=== PATIENT | male | born 1975 | race African-American/Black ===

== ENCOUNTER 2022-11-15 10:42 | Inpatient (IN) | payer OTHER, MEDICARE ==
[~2022-11-15 10:42] MED LIST: BENZ1TAB84 PO; FLUP25VI5 IM; OMEP20 PO
[2022-11-15 13:12] VITALS: BP 109/67; PULSE 89; RESP 18; TEMP 98
[2022-11-16 10:02] VITALS: BP 110/59; PULSE 92; RESP 17; TEMP 98.6
[2022-11-17 20:13] VITALS: BP 107/64; PULSE 93; RESP 20; TEMP 98.6
[2022-11-18] MEDS ORDERED: ALBUTEROL SULFATE HFA 90 MCG/PUFF 8 GM INHALER IH PRN (11:00)
[2022-11-18] MEDS ORDERED: LOPERAMIDE HCL 2 MG CAPSULE PO PRN (11:00)
[2022-11-18] MEDS ORDERED: NICOTINE 14 MG/24 HOUR PATCH TD PRN (11:00)
[2022-11-18] MEDS ORDERED: ACETAMINOPHEN 325 MG TABLET PO PRN (11:00)
[2022-11-18] MEDS ORDERED: ONDANSETRON HCL 4 MG TABLET PO PRN (11:00)
[2022-11-18] MEDS ORDERED: PETROLATUM,WHITE 28 GM JELLY TP PRN (11:00)
[2022-11-18] MEDS ORDERED: MAG HYDROX/ALUMINUM HYD/SIMETH ES 30 ML SUSPENSION UDCUP PO PRN (11:00)
[2022-11-18] MEDS ORDERED: IBUPROFEN 400 MG TABLET PO PRN (11:00)
[2022-11-18] MEDS ORDERED: CloNIDine HCL 0.1 MG TABLET PO PRN (11:00)
[2022-11-18] MEDS ORDERED: GuaiFENesin/D-METHORPHAN [SUGAR-FREE] 200-20MG/10 ML SYRUP UDCUP PO PRN (11:00)
[2022-11-18] MEDS ORDERED: MAGNESIUM HYDROXIDE SUSPENSION 30 ML UDCUP PO PRN (11:00)
[2022-11-18 20:01] VITALS: BP 116/59; PULSE 88; RESP 20; TEMP 98.3
[2022-11-18] MEDS: BENZTROPINE MESYLATE 1 MG TABLET PO SCH (21:00)
[2022-11-19 05:06] VITALS: BP 100/63; PULSE 87; RESP 18; TEMP 98
[2022-11-19] MEDS: BENZTROPINE MESYLATE 1 MG TABLET PO SCH ×2 (09:00→21:00)
[2022-11-19 16:24] VITALS: BP 110/68; PULSE 84; RESP 18; TEMP 98.2
[2022-11-20 08:52] VITALS: BP 97/55; PULSE 88; RESP 20; TEMP 98.5
[2022-11-20] MEDS: BENZTROPINE MESYLATE 1 MG TABLET PO SCH ×2 (09:00→21:00)
[2022-11-20] MEDS: FluPHENAZine DECANOATE 25 MG/ML IM SCH (09:00)
[2022-11-21] MEDS ORDERED: SODIUM CHLORIDE 0.9% 1,000 ML IV ONE (08:30)
[2022-11-21] MEDS: BENZTROPINE MESYLATE 1 MG TABLET PO SCH ×2 (09:00→20:12)
[2022-11-21] MEDS: FluPHENAZine HCL 10 MG TABLET PO SCH (11:30)
[2022-11-22] MEDS: BENZTROPINE MESYLATE 1 MG TABLET PO SCH ×2 (08:37→21:00)
[2022-11-22] MEDS: FluPHENAZine HCL 10 MG TABLET PO SCH (08:38)
[2022-11-23] MEDS: FluPHENAZine HCL 10 MG TABLET PO SCH (09:00)
[2022-11-23] MEDS: BENZTROPINE MESYLATE 1 MG TABLET PO SCH ×2 (09:00→20:50)
[2022-11-23 16:02] VITALS: BP 83/61; PULSE 82; RESP 20; TEMP 98.6
[2022-11-24] MEDS: FluPHENAZine HCL 10 MG TABLET PO SCH (08:20)
[2022-11-24] MEDS: BENZTROPINE MESYLATE 1 MG TABLET PO SCH ×2 (08:20→21:00)
[2022-11-25] MEDS: FluPHENAZine HCL 10 MG TABLET PO SCH (09:00)
[2022-11-25] MEDS: BENZTROPINE MESYLATE 1 MG TABLET PO SCH ×2 (09:00→20:50)
[2022-11-26 07:31] VITALS: BP 138/72; PULSE 54; RESP 19; TEMP 97.9
[2022-11-26] MEDS: FluPHENAZine HCL 10 MG TABLET PO SCH (08:31)
[2022-11-26] MEDS: BENZTROPINE MESYLATE 1 MG TABLET PO SCH ×2 (08:31→20:34)
[2022-11-26 19:49] VITALS: BP 91/50; PULSE 92; RESP 18; TEMP 98.3
[2022-11-27] MEDS: FluPHENAZine HCL 10 MG TABLET PO SCH (08:10)
[2022-11-27] MEDS: BENZTROPINE MESYLATE 1 MG TABLET PO SCH ×2 (08:10→21:00)
[2022-11-27] MEDS: DOCUSATE SODIUM 100 MG CAPSULE PO PRN (08:10)
[2022-11-28] MEDS: BENZTROPINE MESYLATE 1 MG TABLET PO SCH ×3 (09:00→21:00)
[2022-11-28] MEDS: FluPHENAZine HCL 10 MG TABLET PO SCH ×2 (09:00→10:03)
[2022-11-29] MEDS: BENZTROPINE MESYLATE 1 MG TABLET PO SCH ×2 (09:00→21:00)
[2022-11-29] MEDS: FluPHENAZine HCL 10 MG TABLET PO SCH (09:00)
[2022-11-30] MEDS: FluPHENAZine HCL 10 MG TABLET PO SCH (08:16)
[2022-11-30] MEDS: BENZTROPINE MESYLATE 1 MG TABLET PO SCH ×2 (08:16→20:20)
[2022-11-30 09:56] VITALS: BP 101/70; PULSE 149; RESP 18
[2022-12-01] MEDS: BENZTROPINE MESYLATE 1 MG TABLET PO SCH ×2 (07:47→21:00)
[2022-12-01] MEDS: FluPHENAZine HCL 10 MG TABLET PO SCH (07:47)
[2022-12-01] MEDS: DOCUSATE SODIUM 100 MG CAPSULE PO PRN (21:38)
[2022-12-02] MEDS: FluPHENAZine HCL 10 MG TABLET PO SCH (09:00)
[2022-12-02] MEDS: BENZTROPINE MESYLATE 1 MG TABLET PO SCH ×2 (09:00→21:00)
[2022-12-03] MEDS: BENZTROPINE MESYLATE 1 MG TABLET PO SCH ×2 (09:00→21:00)
[2022-12-03] MEDS: FluPHENAZine HCL 10 MG TABLET PO SCH (09:00)
[2022-12-03 20:22] VITALS: BP 105/65; PULSE 66; RESP 20; TEMP 98
[2022-12-04] MEDS: FluPHENAZine DECANOATE 25 MG/ML IM SCH (09:00)
[2022-12-04] MEDS: BENZTROPINE MESYLATE 1 MG TABLET PO SCH ×2 (09:00→21:00)
[2022-12-04] MEDS: FluPHENAZine HCL 10 MG TABLET PO SCH (09:00)
[2022-12-05] MEDS: FluPHENAZine HCL 10 MG TABLET PO SCH (07:53)
[2022-12-05] MEDS: BENZTROPINE MESYLATE 1 MG TABLET PO SCH ×2 (07:53→21:00)
[2022-12-06] MEDS: FluPHENAZine HCL 10 MG TABLET PO SCH ×2 (09:00→09:08)
[2022-12-06] MEDS: BENZTROPINE MESYLATE 1 MG TABLET PO SCH ×3 (09:00→21:00)
[2022-12-07 06:24] VITALS: BP 104/76; PULSE 70; RESP 20; TEMP 97.8
[2022-12-07] MEDS: BENZTROPINE MESYLATE 1 MG TABLET PO SCH ×2 (07:53→19:41)
[2022-12-07] MEDS: FluPHENAZine HCL 10 MG TABLET PO SCH (07:54)
[2022-12-08] MEDS: BENZTROPINE MESYLATE 1 MG TABLET PO SCH ×2 (07:48→21:00)
[2022-12-08] MEDS: FluPHENAZine HCL 10 MG TABLET PO SCH (07:48)
[2022-12-08 20:32] VITALS: BP 105/61; PULSE 60; RESP 20; TEMP 98.1
[2022-12-09] MEDS: FluPHENAZine HCL 10 MG TABLET PO SCH (08:57)
[2022-12-09] MEDS: BENZTROPINE MESYLATE 1 MG TABLET PO SCH ×2 (08:57→21:00)
[2022-12-10] MEDS: FluPHENAZine HCL 10 MG TABLET PO SCH (09:00)
[2022-12-10] MEDS: BENZTROPINE MESYLATE 1 MG TABLET PO SCH ×2 (09:00→21:00)
[2022-12-11] MEDS: FluPHENAZine HCL 10 MG TABLET PO SCH (08:20)
[2022-12-11] MEDS: BENZTROPINE MESYLATE 1 MG TABLET PO SCH ×2 (08:20→21:00)
[2022-12-11 20:16] VITALS: BP 129/74; PULSE 73; RESP 18; TEMP 97.8
[2022-12-12 05:12] VITALS: BP 97/67; PULSE 76; RESP 18; TEMP 98
[2022-12-12 07:33] VITALS: BP 104/68; PULSE 78; RESP 18; TEMP 98.2
[2022-12-12] MEDS: BENZTROPINE MESYLATE 1 MG TABLET PO SCH ×2 (09:00→21:00)
[2022-12-12] MEDS: FluPHENAZine HCL 10 MG TABLET PO SCH (09:00)
[2022-12-12 19:43] VITALS: BP 132/69; PULSE 84; RESP 18; TEMP 97.8
[2022-12-13 03:33] VITALS: BP 118/68; PULSE 70; RESP 18; TEMP 97.7
[2022-12-13] MEDS: BENZTROPINE MESYLATE 1 MG TABLET PO SCH ×2 (08:08→21:00)
[2022-12-13] MEDS: FluPHENAZine HCL 10 MG TABLET PO SCH (08:09)
[2022-12-13 08:15] VITALS: BP 118/64; PULSE 52; RESP 18; TEMP 97.5
[2022-12-13 20:35] VITALS: BP 105/60; PULSE 80; RESP 20; TEMP 98.1
[2022-12-14 04:45] VITALS: BP 98/58; PULSE 85; RESP 18; TEMP 98.4
[2022-12-14 08:00] VITALS: BP 116/71; PULSE 78; RESP 20; TEMP 97.6
[2022-12-14] MEDS: BENZTROPINE MESYLATE 1 MG TABLET PO SCH ×2 (08:40→21:00)
[2022-12-14] MEDS: FluPHENAZine HCL 10 MG TABLET PO SCH (08:41)
[2022-12-15 04:08] VITALS: BP 93/55; PULSE 81; RESP 20; TEMP 97.6
[2022-12-15] MEDS: BENZTROPINE MESYLATE 1 MG TABLET PO SCH ×2 (08:09→21:00)
[2022-12-15] MEDS: FluPHENAZine HCL 10 MG TABLET PO SCH (08:09)
[2022-12-16] MEDS: BENZTROPINE MESYLATE 1 MG TABLET PO SCH ×2 (08:21→20:03)
[2022-12-16] MEDS: FluPHENAZine HCL 10 MG TABLET PO SCH (08:21)
[2022-12-17] MEDS: FluPHENAZine HCL 10 MG TABLET PO SCH (09:00)
[2022-12-17] MEDS: BENZTROPINE MESYLATE 1 MG TABLET PO SCH ×2 (09:00→19:41)
[2022-12-18] MEDS: FluPHENAZine HCL 10 MG TABLET PO SCH (09:00)
[2022-12-18] MEDS: BENZTROPINE MESYLATE 1 MG TABLET PO SCH ×2 (09:00→21:00)
[2022-12-18] MEDS: FluPHENAZine DECANOATE 25 MG/ML IM SCH (09:00)
[2022-12-19] MEDS: BENZTROPINE MESYLATE 1 MG TABLET PO SCH ×2 (08:33→21:00)
[2022-12-19] MEDS: FluPHENAZine HCL 10 MG TABLET PO SCH (08:34)
[2022-12-20] MEDS: FluPHENAZine HCL 10 MG TABLET PO SCH (09:00)
[2022-12-20] MEDS: BENZTROPINE MESYLATE 1 MG TABLET PO SCH ×2 (09:00→20:36)
[2022-12-20 20:23] VITALS: BP 102/66; PULSE 90; RESP 18; TEMP 98.7
[2022-12-21 05:17] VITALS: BP 116/56; PULSE 82; RESP 18; TEMP 97.9
[2022-12-21 07:28] VITALS: BP 118/78; PULSE 87; RESP 18; TEMP 98.4
[2022-12-21] MEDS: BENZTROPINE MESYLATE 1 MG TABLET PO SCH ×2 (09:00→21:00)
[2022-12-21] MEDS: FluPHENAZine HCL 10 MG TABLET PO SCH (09:00)
[2022-12-21 20:15] VITALS: BP 99/54; PULSE 101; RESP 18; TEMP 98.5
[2022-12-22 04:45] VITALS: BP 95/55; PULSE 86; RESP 20; TEMP 98.6
[2022-12-22] MEDS: FluPHENAZine HCL 10 MG TABLET PO SCH (08:20)
[2022-12-22] MEDS: BENZTROPINE MESYLATE 1 MG TABLET PO SCH ×3 (08:20→21:00)
[2022-12-22 19:43] VITALS: BP 105/56; PULSE 91; RESP 20; TEMP 98.5
[2022-12-23 04:24] VITALS: BP 136/87; PULSE 108; RESP 20; TEMP 98.4
[2022-12-23] MEDS: BENZTROPINE MESYLATE 1 MG TABLET PO SCH ×2 (08:13→21:00)
[2022-12-23] MEDS: FluPHENAZine DECANOATE 25 MG/ML IM SCH (08:14)
[2022-12-23] MEDS: FluPHENAZine HCL 10 MG TABLET PO SCH (08:14)
[2022-12-23 08:30] VITALS: BP 114/72; PULSE 95; RESP 20; TEMP 98
[2022-12-24 01:50] VITALS: BP 118/79; PULSE 86; RESP 20; TEMP 98.9
[2022-12-24 07:58] VITALS: BP 112/66; PULSE 89; RESP 20
[2022-12-24] MEDS: BENZTROPINE MESYLATE 1 MG TABLET PO SCH ×2 (08:23→20:43)
[2022-12-24] MEDS: FluPHENAZine HCL 10 MG TABLET PO SCH (08:24)
[2022-12-24 19:48] VITALS: BP 122/73; PULSE 79; RESP 20; TEMP 98.7
[2022-12-25] MEDS: BENZTROPINE MESYLATE 1 MG TABLET PO SCH ×2 (09:00→21:00)
[2022-12-25] MEDS: FluPHENAZine HCL 10 MG TABLET PO SCH (09:00)
[2022-12-25 19:54] VITALS: BP 133/82; PULSE 90; RESP 20; TEMP 98.5
[2022-12-26 04:01] VITALS: BP 115/67; PULSE 74; RESP 20; TEMP 98.6
[2022-12-26 08:33] VITALS: BP 109/61; RESP 20
[2022-12-26] MEDS: BENZTROPINE MESYLATE 1 MG TABLET PO SCH ×2 (08:53→20:40)
[2022-12-26] MEDS: FluPHENAZine HCL 10 MG TABLET PO SCH (08:53)
[2022-12-26 19:53] VITALS: BP 107/58; PULSE 92; RESP 20; TEMP 99.1
[2022-12-27 05:02] VITALS: BP 146/72; PULSE 74; RESP 20; TEMP 98.2
[2022-12-27] MEDS: FluPHENAZine HCL 10 MG TABLET PO SCH (08:08)
[2022-12-27] MEDS: BENZTROPINE MESYLATE 1 MG TABLET PO SCH ×2 (08:08→20:28)
[2022-12-27 19:35] VITALS: BP 123/81; PULSE 94; RESP 20; TEMP 98.2
[2022-12-28 04:48] VITALS: BP 111/68; PULSE 84; RESP 20; TEMP 97.9
[2022-12-28] MEDS: FluPHENAZine HCL 10 MG TABLET PO SCH (07:45)
[2022-12-28] MEDS: BENZTROPINE MESYLATE 1 MG TABLET PO SCH ×2 (07:46→21:22)
[2022-12-28 07:48] VITALS: BP 118/76; PULSE 90; RESP 20; TEMP 98.2
[2022-12-29 04:53] VITALS: BP 99/66; PULSE 87; RESP 18; TEMP 97.9
[2022-12-29 07:41] VITALS: BP 109/71; PULSE 78; RESP 19
[2022-12-29] MEDS: BENZTROPINE MESYLATE 1 MG TABLET PO SCH ×2 (09:00→20:20)
[2022-12-29] MEDS: FluPHENAZine HCL 10 MG TABLET PO SCH (09:00)
[2022-12-29 19:44] VITALS: BP 111/70; PULSE 92; RESP 18; TEMP 99
[2022-12-30 04:57] VITALS: BP 109/66; PULSE 81; RESP 19; TEMP 98.7
[2022-12-30 09:00] VITALS: BP 129/79; PULSE 91; RESP 20; TEMP 98.3
[2022-12-30] MEDS: FluPHENAZine HCL 10 MG TABLET PO SCH (09:00)
[2022-12-30] MEDS: BENZTROPINE MESYLATE 1 MG TABLET PO SCH ×2 (09:00→19:49)
[2022-12-30 19:35] VITALS: BP 119/75; PULSE 93; RESP 18; TEMP 99.9
[2022-12-31 04:37] VITALS: BP 113/80; PULSE 69; RESP 20; TEMP 98.9
[2022-12-31 08:23] VITALS: BP 124/91; PULSE 84; RESP 20; TEMP 98
[2022-12-31] MEDS: FluPHENAZine HCL 10 MG TABLET PO SCH (09:00)
[2022-12-31] MEDS: BENZTROPINE MESYLATE 1 MG TABLET PO SCH ×2 (09:00→20:46)
[2022-12-31 20:40] VITALS: BP 110/68; PULSE 95; RESP 20; TEMP 98.9
[2023-01-01 03:55] VITALS: BP 124/70; PULSE 92; RESP 20; TEMP 98.3
[2023-01-01 05:23] VITALS: BP 142/66; PULSE 77; RESP 20; TEMP 98.4
[2023-01-01 09:00] VITALS: BP 119/72; PULSE 90; RESP 20; TEMP 98.7
[2023-01-01] MEDS: BENZTROPINE MESYLATE 1 MG TABLET PO SCH ×2 (09:00→20:41)
[2023-01-01] MEDS: FluPHENAZine HCL 10 MG TABLET PO SCH (09:00)
[2023-01-01] MEDS: FluPHENAZine DECANOATE 25 MG/ML IM SCH (09:00)
[2023-01-02 04:30] VITALS: BP 117/62; PULSE 97; RESP 18; TEMP 98.1
[2023-01-02] MEDS: FluPHENAZine HCL 10 MG TABLET PO SCH (09:00)
[2023-01-02] MEDS: BENZTROPINE MESYLATE 1 MG TABLET PO SCH ×2 (09:00→20:03)
[2023-01-02 19:40] VITALS: BP 96/63; PULSE 105; RESP 18; TEMP 99.3
[2023-01-03 04:15] VITALS: BP 112/79; PULSE 99; RESP 20; TEMP 98.6
[2023-01-03] MEDS: BENZTROPINE MESYLATE 1 MG TABLET PO SCH ×2 (08:56→21:00)
[2023-01-03] MEDS: FluPHENAZine HCL 10 MG TABLET PO SCH (08:56)
[2023-01-03 19:30] VITALS: BP 98/68; PULSE 101; RESP 18; TEMP 99.6
[2023-01-04 08:02] VITALS: BP 119/80; PULSE 81; RESP 18; TEMP 98.3
[2023-01-04] MEDS: BENZTROPINE MESYLATE 1 MG TABLET PO SCH ×3 (08:54→20:35)
[2023-01-04] MEDS: FluPHENAZine HCL 10 MG TABLET PO SCH (08:54)
[2023-01-04 19:46] VITALS: BP 101/55; PULSE 97; RESP 17; TEMP 98.8
[2023-01-05 04:48] VITALS: BP 98/55; PULSE 79; RESP 18; TEMP 98.7
[2023-01-05 08:00] VITALS: BP 104/64; PULSE 87; RESP 18; TEMP 98.7
[2023-01-05] MEDS: FluPHENAZine HCL 10 MG TABLET PO SCH (09:00)
[2023-01-05] MEDS: BENZTROPINE MESYLATE 1 MG TABLET PO SCH ×3 (09:00→21:46)
[2023-01-05 19:43] VITALS: BP 93/68; PULSE 84; RESP 18; TEMP 98.4
[2023-01-06 04:22] VITALS: BP 106/64; PULSE 80; RESP 18; TEMP 99.1
[2023-01-06 08:29] VITALS: BP 106/68; PULSE 82; RESP 18; TEMP 98
[2023-01-06] MEDS: BENZTROPINE MESYLATE 1 MG TABLET PO SCH ×2 (09:00→21:00)
[2023-01-06] MEDS: FluPHENAZine HCL 10 MG TABLET PO SCH (09:00)
[2023-01-06] MEDS: MULTIVITAMINS WITH MINERALS, THERAPEUTIC TABLET PO SCH (10:00)
[2023-01-06 20:40] VITALS: BP 101/59; PULSE 94; RESP 18; TEMP 98.6
[2023-01-07 05:18] VITALS: BP 97/51; PULSE 86; RESP 18; TEMP 98.8
[2023-01-07] MEDS: MULTIVITAMINS WITH MINERALS, THERAPEUTIC TABLET PO SCH (09:00)
[2023-01-07] MEDS: BENZTROPINE MESYLATE 1 MG TABLET PO SCH ×2 (09:00→21:00)
[2023-01-07] MEDS: FluPHENAZine HCL 10 MG TABLET PO SCH (09:00)
[2023-01-07 20:12] VITALS: BP 91/50; PULSE 94; RESP 18; TEMP 99.2
[2023-01-08 04:15] VITALS: BP 106/58; PULSE 82; RESP 18; TEMP 98.2
[2023-01-08 08:48] VITALS: BP 87/55; PULSE 85; RESP 19; TEMP 98.9
[2023-01-08] MEDS: FluPHENAZine HCL 10 MG TABLET PO SCH (09:00)
[2023-01-08] MEDS: MULTIVITAMINS WITH MINERALS, THERAPEUTIC TABLET PO SCH (09:00)
[2023-01-08] MEDS: BENZTROPINE MESYLATE 1 MG TABLET PO SCH ×2 (09:00→20:21)
[2023-01-08 19:40] VITALS: BP 93/65; PULSE 92; RESP 20; TEMP 98.9
[2023-01-09 05:02] VITALS: BP 95/62; PULSE 76; RESP 20; TEMP 98.1
[2023-01-09 07:38] VITALS: BP 93/55; PULSE 81; RESP 18; TEMP 98
[2023-01-09] MEDS: MULTIVITAMINS WITH MINERALS, THERAPEUTIC TABLET PO SCH (08:14)
[2023-01-09] MEDS: BENZTROPINE MESYLATE 1 MG TABLET PO SCH ×2 (08:14→19:54)
[2023-01-09] MEDS: FluPHENAZine HCL 10 MG TABLET PO SCH (08:14)
[2023-01-09 20:06] VITALS: BP 122/71; PULSE 89; RESP 20; TEMP 97.4
[2023-01-10 04:26] VITALS: BP 99/68; PULSE 96; RESP 18; TEMP 97.8
[2023-01-10] MEDS: BENZTROPINE MESYLATE 1 MG TABLET PO SCH ×2 (08:32→21:00)
[2023-01-10] MEDS: FluPHENAZine HCL 10 MG TABLET PO SCH (08:32)
[2023-01-10] MEDS: MULTIVITAMINS WITH MINERALS, THERAPEUTIC TABLET PO SCH (08:33)
[2023-01-10 10:54] VITALS: BP 100/61; PULSE 93; RESP 18; TEMP 97.5
[2023-01-10 21:10] VITALS: BP 110/68; PULSE 84; RESP 18; TEMP 98
[2023-01-11 05:34] VITALS: BP 106/64; PULSE 85; RESP 18; TEMP 98.2
[2023-01-11 08:00] VITALS: BP 110/66; PULSE 79; RESP 18; TEMP 97.8
[2023-01-11] MEDS: MULTIVITAMINS WITH MINERALS, THERAPEUTIC TABLET PO SCH (09:00)
[2023-01-11] MEDS: BENZTROPINE MESYLATE 1 MG TABLET PO SCH ×2 (09:00→21:00)
[2023-01-11] MEDS: FluPHENAZine HCL 10 MG TABLET PO SCH (09:00)
[2023-01-11 20:18] VITALS: BP 97/54; PULSE 92; RESP 18; TEMP 98.8
[2023-01-12 05:05] VITALS: BP 87/50; PULSE 77; RESP 20; TEMP 98.9
[2023-01-12] MEDS: BENZTROPINE MESYLATE 1 MG TABLET PO SCH ×2 (09:00→20:33)
[2023-01-12] MEDS: FluPHENAZine HCL 10 MG TABLET PO SCH (09:00)
[2023-01-12] MEDS: MULTIVITAMINS WITH MINERALS, THERAPEUTIC TABLET PO SCH (09:00)
[2023-01-12 20:34] VITALS: BP 112/67; PULSE 85; RESP 18; TEMP 97.7
[2023-01-13 03:49] VITALS: BP 115/73; PULSE 86; RESP 18; TEMP 98.1
[2023-01-13] MEDS: FluPHENAZine HCL 10 MG TABLET PO SCH (08:02)
[2023-01-13] MEDS: BENZTROPINE MESYLATE 1 MG TABLET PO SCH ×2 (08:02→20:29)
[2023-01-13] MEDS: MULTIVITAMINS WITH MINERALS, THERAPEUTIC TABLET PO SCH (08:02)
[2023-01-13 08:21] VITALS: BP 113/81; PULSE 70; RESP 20; TEMP 97.8
[2023-01-13 16:40] VITALS: BP 107/63; PULSE 84; RESP 20; TEMP 98.5
[2023-01-13 20:18] VITALS: BP 122/78; PULSE 82; RESP 18; TEMP 98.6
[2023-01-14 05:58] VITALS: BP 116/76; PULSE 69; RESP 18; TEMP 98
[2023-01-14] MEDS: MULTIVITAMINS WITH MINERALS, THERAPEUTIC TABLET PO SCH (08:05)
[2023-01-14] MEDS: FluPHENAZine HCL 10 MG TABLET PO SCH (08:05)
[2023-01-14] MEDS: BENZTROPINE MESYLATE 1 MG TABLET PO SCH ×2 (08:05→20:36)
[2023-01-14 19:38] VITALS: BP 130/72; PULSE 86; RESP 18; TEMP 99
[2023-01-15 04:16] VITALS: BP 104/59; PULSE 93; RESP 18; TEMP 99
[2023-01-15 08:04] VITALS: BP 101/59; PULSE 95; RESP 19; TEMP 98.8
[2023-01-15] MEDS: FluPHENAZine DECANOATE 25 MG/ML IM SCH ×2 (09:00→09:18)
[2023-01-15] MEDS: BENZTROPINE MESYLATE 1 MG TABLET PO SCH ×3 (09:00→21:00)
[2023-01-15] MEDS: MULTIVITAMINS WITH MINERALS, THERAPEUTIC TABLET PO SCH ×2 (09:00→09:16)
[2023-01-15] MEDS: FluPHENAZine HCL 10 MG TABLET PO SCH ×2 (09:00→09:17)
[2023-01-15 19:33] VITALS: BP 105/56; PULSE 93; RESP 18; TEMP 97.7
[2023-01-16 04:32] VITALS: BP 102/58; PULSE 90; RESP 18; TEMP 97.6
[2023-01-16 08:13] VITALS: BP 93/63; PULSE 94; RESP 20; TEMP 98.1
[2023-01-16] MEDS: MULTIVITAMINS WITH MINERALS, THERAPEUTIC TABLET PO SCH ×2 (08:48→10:29)
[2023-01-16] MEDS: BENZTROPINE MESYLATE 1 MG TABLET PO SCH ×2 (08:50→20:34)
[2023-01-16] MEDS: FluPHENAZine HCL 10 MG TABLET PO SCH (08:50)
[2023-01-16 16:14] VITALS: BP 92/57; PULSE 89; RESP 20; TEMP 98.8
[2023-01-16 20:17] VITALS: BP 115/63; PULSE 99; RESP 18; TEMP 98.9
[2023-01-17 08:19] VITALS: BP 121/61; PULSE 93; RESP 18; TEMP 98.7
[2023-01-17] MEDS: BENZTROPINE MESYLATE 1 MG TABLET PO SCH ×2 (08:22→20:48)
[2023-01-17] MEDS: MULTIVITAMINS WITH MINERALS, THERAPEUTIC TABLET PO SCH (08:23)
[2023-01-17] MEDS: FluPHENAZine HCL 10 MG TABLET PO SCH (08:23)
[2023-01-17 19:44] VITALS: BP 107/58; PULSE 70; RESP 18; TEMP 98.7
[2023-01-18 04:53] VITALS: BP 110/64; PULSE 72; RESP 18; TEMP 98.5
[2023-01-18 08:05] VITALS: BP 106/62; PULSE 70; RESP 18; TEMP 98.4
[2023-01-18] MEDS: FluPHENAZine HCL 10 MG TABLET PO SCH (09:00)
[2023-01-18] MEDS: MULTIVITAMINS WITH MINERALS, THERAPEUTIC TABLET PO SCH (09:00)
[2023-01-18] MEDS: BENZTROPINE MESYLATE 1 MG TABLET PO SCH ×2 (09:00→21:00)
[2023-01-18 16:25] VITALS: BP 109/61; PULSE 75; RESP 18; TEMP 98
[2023-01-18 19:34] VITALS: BP 110/67; PULSE 82; RESP 20; TEMP 98.4
[2023-01-19 05:38] VITALS: BP 93/59; PULSE 75; RESP 18; TEMP 98.3
[2023-01-19] MEDS: BENZTROPINE MESYLATE 1 MG TABLET PO SCH ×2 (08:10→21:00)
[2023-01-19] MEDS: FluPHENAZine HCL 10 MG TABLET PO SCH (08:10)
[2023-01-19] MEDS: MULTIVITAMINS WITH MINERALS, THERAPEUTIC TABLET PO SCH (08:10)
[2023-01-19 19:23] VITALS: BP 96/61; PULSE 90; RESP 18; TEMP 99.1
[2023-01-19] MEDS: ETHYL ALCOHOL 62% ANTISEPTIC NASAL SANITIZER 0.6 ML AMPUL NASAL SCH (21:00)
[2023-01-20 04:34] VITALS: BP 93/62; PULSE 80; RESP 18; TEMP 98.2
[2023-01-20 07:24] VITALS: BP 98/64; PULSE 82; RESP 18; TEMP 98.6
[2023-01-20] MEDS: FluPHENAZine HCL 10 MG TABLET PO SCH (09:00)
[2023-01-20] MEDS: BENZTROPINE MESYLATE 1 MG TABLET PO SCH ×2 (09:00→21:00)
[2023-01-20] MEDS: ETHYL ALCOHOL 62% ANTISEPTIC NASAL SANITIZER 0.6 ML AMPUL NASAL SCH ×2 (09:00→21:00)
[2023-01-20] MEDS: MULTIVITAMINS WITH MINERALS, THERAPEUTIC TABLET PO SCH (09:00)
[2023-01-21 05:13] VITALS: BP 104/64; PULSE 76; RESP 18; TEMP 98
[2023-01-21] MEDS: ETHYL ALCOHOL 62% ANTISEPTIC NASAL SANITIZER 0.6 ML AMPUL NASAL SCH ×2 (08:57→20:13)
[2023-01-21] MEDS: BENZTROPINE MESYLATE 1 MG TABLET PO SCH ×2 (08:58→20:13)
[2023-01-21] MEDS: MULTIVITAMINS WITH MINERALS, THERAPEUTIC TABLET PO SCH (08:58)
[2023-01-21] MEDS: FluPHENAZine HCL 10 MG TABLET PO SCH (08:58)
[2023-01-21 09:07] VITALS: BP 100/55; PULSE 71; RESP 18; TEMP 98.1
[2023-01-22] MEDS: MULTIVITAMINS WITH MINERALS, THERAPEUTIC TABLET PO SCH (09:00)
[2023-01-22] MEDS: ETHYL ALCOHOL 62% ANTISEPTIC NASAL SANITIZER 0.6 ML AMPUL NASAL SCH ×2 (09:00→21:00)
[2023-01-22] MEDS: BENZTROPINE MESYLATE 1 MG TABLET PO SCH ×2 (09:00→21:00)
[2023-01-22] MEDS: FluPHENAZine HCL 10 MG TABLET PO SCH (09:00)
[2023-01-22 15:58] VITALS: BP 102/68; PULSE 76; RESP 20; TEMP 104
[2023-01-22 19:37] VITALS: BP 105/70; PULSE 79; RESP 20; TEMP 98
[2023-01-23 04:19] VITALS: BP 101/66; PULSE 76; RESP 20; TEMP 97.9
[2023-01-23] MEDS: ETHYL ALCOHOL 62% ANTISEPTIC NASAL SANITIZER 0.6 ML AMPUL NASAL SCH ×2 (08:29→20:56)
[2023-01-23] MEDS: FluPHENAZine HCL 10 MG TABLET PO SCH (08:29)
[2023-01-23] MEDS: MULTIVITAMINS WITH MINERALS, THERAPEUTIC TABLET PO SCH (08:29)
[2023-01-23] MEDS: BENZTROPINE MESYLATE 1 MG TABLET PO SCH ×2 (08:29→20:57)
[2023-01-23 16:02] VITALS: BP 100/67; PULSE 89; RESP 20; TEMP 98
[2023-01-23 20:22] VITALS: BP 96/58; PULSE 90; RESP 20; TEMP 98.7
[2023-01-24] MEDS: ETHYL ALCOHOL 62% ANTISEPTIC NASAL SANITIZER 0.6 ML AMPUL NASAL SCH ×2 (08:50→21:00)
[2023-01-24] MEDS: BENZTROPINE MESYLATE 1 MG TABLET PO SCH ×2 (08:50→21:00)
[2023-01-24] MEDS: MULTIVITAMINS WITH MINERALS, THERAPEUTIC TABLET PO SCH (08:51)
[2023-01-24] MEDS: FluPHENAZine HCL 10 MG TABLET PO SCH (08:51)
[2023-01-25] MEDS: ETHYL ALCOHOL 62% ANTISEPTIC NASAL SANITIZER 0.6 ML AMPUL NASAL SCH ×2 (09:00→21:00)
[2023-01-25] MEDS: BENZTROPINE MESYLATE 1 MG TABLET PO SCH ×2 (09:00→21:00)
[2023-01-25] MEDS: MULTIVITAMINS WITH MINERALS, THERAPEUTIC TABLET PO SCH (09:00)
[2023-01-25] MEDS: FluPHENAZine HCL 10 MG TABLET PO SCH (09:00)
[2023-01-25 20:10] VITALS: BP 112/75; PULSE 77; RESP 20; TEMP 97.5
[2023-01-26] MEDS: ETHYL ALCOHOL 62% ANTISEPTIC NASAL SANITIZER 0.6 ML AMPUL NASAL SCH ×2 (09:00→21:00)
[2023-01-26] MEDS: FluPHENAZine HCL 10 MG TABLET PO SCH (09:00)
[2023-01-26] MEDS: BENZTROPINE MESYLATE 1 MG TABLET PO SCH ×2 (09:00→21:00)
[2023-01-26] MEDS: MULTIVITAMINS WITH MINERALS, THERAPEUTIC TABLET PO SCH (09:00)
[2023-01-26 19:22] VITALS: BP 103/66; PULSE 85; RESP 20; TEMP 97.8
[2023-01-27 04:25] VITALS: BP 96/74; PULSE 91; RESP 18; TEMP 98.1
[2023-01-27] MEDS: FluPHENAZine HCL 10 MG TABLET PO SCH (09:00)
[2023-01-27] MEDS: MULTIVITAMINS WITH MINERALS, THERAPEUTIC TABLET PO SCH (09:00)
[2023-01-27] MEDS: ETHYL ALCOHOL 62% ANTISEPTIC NASAL SANITIZER 0.6 ML AMPUL NASAL SCH ×2 (09:00→20:53)
[2023-01-27] MEDS: BENZTROPINE MESYLATE 1 MG TABLET PO SCH ×2 (09:00→20:53)
[2023-01-28] MEDS: FluPHENAZine HCL 10 MG TABLET PO SCH ×2 (08:55→21:21)
[2023-01-28] MEDS: MULTIVITAMINS WITH MINERALS, THERAPEUTIC TABLET PO SCH (08:55)
[2023-01-28] MEDS: BENZTROPINE MESYLATE 1 MG TABLET PO SCH ×2 (08:55→21:20)
[2023-01-28] MEDS: ETHYL ALCOHOL 62% ANTISEPTIC NASAL SANITIZER 0.6 ML AMPUL NASAL SCH ×2 (08:55→21:20)
[2023-01-28 19:27] VITALS: BP 107/58; PULSE 74; RESP 18; TEMP 97.9
[2023-01-29 04:50] VITALS: BP 102/64; PULSE 78; RESP 18; TEMP 98.3
[2023-01-29] MEDS: BENZTROPINE MESYLATE 1 MG TABLET PO SCH ×2 (08:32→20:00)
[2023-01-29] MEDS: ETHYL ALCOHOL 62% ANTISEPTIC NASAL SANITIZER 0.6 ML AMPUL NASAL SCH ×2 (08:33→20:00)
[2023-01-29] MEDS: MULTIVITAMINS WITH MINERALS, THERAPEUTIC TABLET PO SCH (08:34)
[2023-01-29] MEDS: FluPHENAZine HCL 10 MG TABLET PO SCH ×3 (08:34→20:00)
[2023-01-29] MEDS: FluPHENAZine DECANOATE 25 MG/ML IM SCH (08:35)
[2023-01-29 16:35] VITALS: BP 99/57; PULSE 92; RESP 18
[2023-01-29 20:00] VITALS: BP 92/65; PULSE 94; RESP 18; TEMP 98.5
[2023-01-30 06:45] VITALS: BP 96/62; PULSE 90; RESP 18; TEMP 98.2
[2023-01-30 08:30] VITALS: BP 99/67; PULSE 74; RESP 19
[2023-01-30] MEDS: BENZTROPINE MESYLATE 1 MG TABLET PO SCH ×3 (08:36→21:00)
[2023-01-30] MEDS: FluPHENAZine HCL 10 MG TABLET PO SCH ×4 (08:37→21:00)
[2023-01-30] MEDS: MULTIVITAMINS WITH MINERALS, THERAPEUTIC TABLET PO SCH ×2 (08:37→09:00)
[2023-01-30] MEDS: ETHYL ALCOHOL 62% ANTISEPTIC NASAL SANITIZER 0.6 ML AMPUL NASAL SCH ×2 (09:00→21:43)
[2023-01-30 19:55] VITALS: BP 99/59; PULSE 104; RESP 20; TEMP 98.7
[2023-01-30] MEDS: BENZTROPINE MESYLATE 1 MG/ML 2 ML VIAL IM PRN (21:41)
[2023-01-30] MEDS: FluPHENAZine HCL 2.5 MG/ML INJ IM PRN (21:42)
[2023-01-31 04:30] VITALS: BP 96/64; PULSE 88; RESP 18; TEMP 98.1
[2023-01-31 08:13] VITALS: BP 107/70; PULSE 77; RESP 18; TEMP 98.2
[2023-01-31] MEDS: FluPHENAZine HCL 10 MG TABLET PO SCH ×3 (09:00→20:55)
[2023-01-31] MEDS: MULTIVITAMINS WITH MINERALS, THERAPEUTIC TABLET PO SCH (09:00)
[2023-01-31] MEDS: ETHYL ALCOHOL 62% ANTISEPTIC NASAL SANITIZER 0.6 ML AMPUL NASAL SCH ×2 (09:00→21:00)
[2023-01-31] MEDS: BENZTROPINE MESYLATE 1 MG TABLET PO SCH ×2 (09:00→20:55)
[2023-01-31] MEDS: FluPHENAZine HCL 2.5 MG/ML INJ IM PRN ×2 (10:32→21:38)
[2023-01-31] MEDS: BENZTROPINE MESYLATE 1 MG/ML 2 ML VIAL IM PRN ×2 (10:32→21:38)
[2023-01-31 19:55] VITALS: BP 105/74; PULSE 93; RESP 20; TEMP 98.1
[2023-02-01 04:35] VITALS: BP 110/67; PULSE 72; RESP 20; TEMP 97.7
[2023-02-01 08:04] VITALS: BP 107/65; PULSE 75; RESP 18; TEMP 98
[2023-02-01] MEDS: MULTIVITAMINS WITH MINERALS, THERAPEUTIC TABLET PO SCH (09:00)
[2023-02-01] MEDS: FluPHENAZine HCL 10 MG TABLET PO SCH ×3 (09:00→21:00)
[2023-02-01] MEDS: BENZTROPINE MESYLATE 1 MG TABLET PO SCH ×2 (09:00→21:00)
[2023-02-01] MEDS: FluPHENAZine HCL 2.5 MG/ML INJ IM PRN ×2 (09:16→21:52)
[2023-02-01] MEDS: BENZTROPINE MESYLATE 1 MG/ML 2 ML VIAL IM PRN ×2 (09:16→21:57)
[2023-02-01] MEDS: ETHYL ALCOHOL 62% ANTISEPTIC NASAL SANITIZER 0.6 ML AMPUL NASAL SCH ×2 (09:19→21:00)
[2023-02-01 16:04] VITALS: BP 109/61; PULSE 71; RESP 18; TEMP 98.2
[2023-02-01 19:41] VITALS: BP 96/52; PULSE 83; RESP 18; TEMP 98.1
[2023-02-02 04:08] VITALS: BP 115/80; PULSE 66; RESP 20; TEMP 98.3
[2023-02-02] MEDS: BENZTROPINE MESYLATE 1 MG/ML 2 ML VIAL IM PRN ×2 (08:35→21:19)
[2023-02-02] MEDS: ETHYL ALCOHOL 62% ANTISEPTIC NASAL SANITIZER 0.6 ML AMPUL NASAL SCH ×2 (08:36→21:18)
[2023-02-02] MEDS: FluPHENAZine HCL 10 MG TABLET PO SCH ×3 (09:00→21:00)
[2023-02-02] MEDS: BENZTROPINE MESYLATE 1 MG TABLET PO SCH ×2 (09:00→21:00)
[2023-02-02] MEDS: MULTIVITAMINS WITH MINERALS, THERAPEUTIC TABLET PO SCH (09:00)
[2023-02-02 19:54] VITALS: BP 109/73; PULSE 67; RESP 20; TEMP 98.7
[2023-02-02] MEDS: HALOPERIDOL LACTATE 5 MG/ML VIAL IM PRN (21:19)
[2023-02-03] MEDS: MULTIVITAMINS WITH MINERALS, THERAPEUTIC TABLET PO SCH (09:00)
[2023-02-03] MEDS: BENZTROPINE MESYLATE 1 MG TABLET PO SCH ×2 (09:00→21:00)
[2023-02-03] MEDS: ETHYL ALCOHOL 62% ANTISEPTIC NASAL SANITIZER 0.6 ML AMPUL NASAL SCH ×2 (09:00→21:00)
[2023-02-03] MEDS: FluPHENAZine HCL 10 MG TABLET PO SCH ×2 (09:00→21:00)
[2023-02-03] MEDS: HALOPERIDOL LACTATE 5 MG/ML VIAL IM PRN ×2 (09:12→22:34)
[2023-02-03] MEDS: BENZTROPINE MESYLATE 1 MG/ML 2 ML VIAL IM PRN ×2 (09:13→22:35)
[2023-02-03 09:15] VITALS: BP 134/78; PULSE 90; RESP 19; TEMP 97.8
[2023-02-03 19:23] VITALS: BP 101/59; PULSE 87; RESP 18; TEMP 98.5
[2023-02-04] MEDS: MULTIVITAMINS WITH MINERALS, THERAPEUTIC TABLET PO SCH (08:51)
[2023-02-04] MEDS: BENZTROPINE MESYLATE 1 MG TABLET PO SCH ×2 (08:51→21:00)
[2023-02-04] MEDS: FluPHENAZine HCL 10 MG TABLET PO SCH ×2 (08:51→21:00)
[2023-02-04] MEDS: ETHYL ALCOHOL 62% ANTISEPTIC NASAL SANITIZER 0.6 ML AMPUL NASAL SCH ×2 (08:52→21:14)
[2023-02-04] MEDS: BENZTROPINE MESYLATE 1 MG/ML 2 ML VIAL IM PRN ×2 (08:57→21:15)
[2023-02-04] MEDS: HALOPERIDOL LACTATE 5 MG/ML VIAL IM PRN ×2 (08:58→21:14)
[2023-02-05] MEDS: ETHYL ALCOHOL 62% ANTISEPTIC NASAL SANITIZER 0.6 ML AMPUL NASAL SCH ×2 (09:00→21:09)
[2023-02-05] MEDS: FluPHENAZine HCL 10 MG TABLET PO SCH ×2 (09:00→21:00)
[2023-02-05] MEDS: MULTIVITAMINS WITH MINERALS, THERAPEUTIC TABLET PO SCH (09:00)
[2023-02-05] MEDS: BENZTROPINE MESYLATE 1 MG TABLET PO SCH ×2 (09:00→21:00)
[2023-02-05] MEDS: HALOPERIDOL LACTATE 5 MG/ML VIAL IM PRN ×2 (09:24→21:10)
[2023-02-05] MEDS: BENZTROPINE MESYLATE 1 MG/ML 2 ML VIAL IM PRN ×2 (09:25→21:09)
[2023-02-05 09:41] VITALS: BP 136/78; PULSE 98; RESP 17
[2023-02-06 08:18] VITALS: BP 122/76; PULSE 90; RESP 18; TEMP 97.8
[2023-02-06] MEDS: BENZTROPINE MESYLATE 1 MG TABLET PO SCH ×2 (09:00→21:42)
[2023-02-06] MEDS: MULTIVITAMINS WITH MINERALS, THERAPEUTIC TABLET PO SCH (09:00)
[2023-02-06] MEDS: FluPHENAZine HCL 10 MG TABLET PO SCH ×2 (09:00→21:42)
[2023-02-06] MEDS: ETHYL ALCOHOL 62% ANTISEPTIC NASAL SANITIZER 0.6 ML AMPUL NASAL SCH ×2 (09:00→21:42)
[2023-02-06] MEDS: BENZTROPINE MESYLATE 1 MG/ML 2 ML VIAL IM PRN ×2 (10:08→22:01)
[2023-02-06] MEDS: HALOPERIDOL LACTATE 5 MG/ML VIAL IM PRN (10:09)
[2023-02-06 20:33] VITALS: BP 111/61; PULSE 89; RESP 20; TEMP 99.1
[2023-02-07 04:22] VITALS: BP 119/66; PULSE 80; RESP 20; TEMP 98.1
[2023-02-07] MEDS: MULTIVITAMINS WITH MINERALS, THERAPEUTIC TABLET PO SCH (09:00)
[2023-02-07] MEDS: ETHYL ALCOHOL 62% ANTISEPTIC NASAL SANITIZER 0.6 ML AMPUL NASAL SCH ×3 (09:00→21:29)
[2023-02-07 09:19] VITALS: BP 131/74; PULSE 99; RESP 18; TEMP 98.5
[2023-02-07 19:55] VITALS: BP 147/88; PULSE 90; RESP 20; TEMP 99.3
[2023-02-07] MEDS: BENZTROPINE MESYLATE 1 MG TABLET PO SCH ×2 (21:00→21:34)
[2023-02-07] MEDS: FluPHENAZine HCL 10 MG TABLET PO SCH ×3 (21:00→21:35)
[2023-02-08 04:35] VITALS: BP 118/83; PULSE 83; RESP 20; TEMP 98.2
[2023-02-08] MEDS: MULTIVITAMINS WITH MINERALS, THERAPEUTIC TABLET PO SCH (09:00)
[2023-02-08] MEDS: BENZTROPINE MESYLATE 1 MG TABLET PO SCH ×2 (09:00→20:07)
[2023-02-08] MEDS: BENZTROPINE MESYLATE 1 MG/ML 2 ML VIAL IM PRN (09:12)
[2023-02-08] MEDS: ETHYL ALCOHOL 62% ANTISEPTIC NASAL SANITIZER 0.6 ML AMPUL NASAL SCH ×2 (09:12→20:07)
[2023-02-08] MEDS: FluPHENAZine HCL 10 MG TABLET PO SCH ×2 (16:11→20:07)
[2023-02-08 19:45] VITALS: BP 120/69; PULSE 98; RESP 20; TEMP 98.2
[2023-02-09 04:56] VITALS: BP 109/62; PULSE 71; RESP 18; TEMP 98.2
[2023-02-09] MEDS: FluPHENAZine HCL 10 MG TABLET PO SCH ×2 (07:55→20:24)
[2023-02-09] MEDS: MULTIVITAMINS WITH MINERALS, THERAPEUTIC TABLET PO SCH (07:55)
[2023-02-09] MEDS: BENZTROPINE MESYLATE 1 MG TABLET PO SCH ×2 (07:55→20:24)
[2023-02-09] MEDS: ETHYL ALCOHOL 62% ANTISEPTIC NASAL SANITIZER 0.6 ML AMPUL NASAL SCH ×2 (07:55→20:25)
[2023-02-09 07:57] VITALS: BP 129/84; PULSE 87; RESP 18; TEMP 97.8
[2023-02-09 15:24] VITALS: BP 126/86; PULSE 84; RESP 18; TEMP 98.4
[2023-02-09 19:39] VITALS: BP 107/62; PULSE 97; RESP 18; TEMP 98.1
[2023-02-10 05:32] VITALS: BP 105/65; PULSE 90; RESP 19; TEMP 97.9
[2023-02-10 08:15] VITALS: BP 131/77; PULSE 78; RESP 19; TEMP 98.8
[2023-02-10] MEDS: MULTIVITAMINS WITH MINERALS, THERAPEUTIC TABLET PO SCH (08:32)
[2023-02-10] MEDS: BENZTROPINE MESYLATE 1 MG TABLET PO SCH ×2 (08:32→20:38)
[2023-02-10] MEDS: ETHYL ALCOHOL 62% ANTISEPTIC NASAL SANITIZER 0.6 ML AMPUL NASAL SCH ×2 (08:32→20:38)
[2023-02-10] MEDS: FluPHENAZine HCL 10 MG TABLET PO SCH ×2 (08:59→20:38)
[2023-02-10 20:18] VITALS: BP 109/63; PULSE 95; RESP 20; TEMP 98.9
[2023-02-11 04:15] VITALS: BP 105/63; PULSE 86; RESP 20; TEMP 98.3
[2023-02-11 08:13] VITALS: BP 110/64; PULSE 84; RESP 20; TEMP 98.4
[2023-02-11] MEDS: ETHYL ALCOHOL 62% ANTISEPTIC NASAL SANITIZER 0.6 ML AMPUL NASAL SCH ×2 (08:44→20:22)
[2023-02-11] MEDS: FluPHENAZine HCL 10 MG TABLET PO SCH ×2 (08:44→20:22)
[2023-02-11] MEDS: BENZTROPINE MESYLATE 1 MG TABLET PO SCH ×2 (08:44→20:22)
[2023-02-11] MEDS: MULTIVITAMINS WITH MINERALS, THERAPEUTIC TABLET PO SCH (08:44)
[2023-02-11 16:13] VITALS: BP 123/82; PULSE 89; RESP 19; TEMP 98.7
[2023-02-11 20:30] VITALS: BP 125/68; PULSE 101; RESP 18; TEMP 98.6
[2023-02-12 05:00] VITALS: BP 114/71; PULSE 84; RESP 18; TEMP 98.1
[2023-02-12] MEDS: FluPHENAZine HCL 10 MG TABLET PO SCH ×2 (07:55→20:00)
[2023-02-12] MEDS: BENZTROPINE MESYLATE 1 MG TABLET PO SCH ×2 (07:55→20:00)
[2023-02-12] MEDS: MULTIVITAMINS WITH MINERALS, THERAPEUTIC TABLET PO SCH (07:55)
[2023-02-12] MEDS: ETHYL ALCOHOL 62% ANTISEPTIC NASAL SANITIZER 0.6 ML AMPUL NASAL SCH ×2 (07:55→20:00)
[2023-02-12] MEDS: FluPHENAZine DECANOATE 25 MG/ML IM SCH (07:56)
[2023-02-12 19:52] VITALS: BP 140/87; PULSE 104; RESP 20; TEMP 97.3
[2023-02-13 04:30] VITALS: BP 109/67; PULSE 85; RESP 18; TEMP 98.1
[2023-02-13 08:11] VITALS: BP 110/69; PULSE 86; RESP 18; TEMP 98.4
[2023-02-13] MEDS: ETHYL ALCOHOL 62% ANTISEPTIC NASAL SANITIZER 0.6 ML AMPUL NASAL SCH ×2 (08:44→20:09)
[2023-02-13] MEDS: MULTIVITAMINS WITH MINERALS, THERAPEUTIC TABLET PO SCH (08:44)
[2023-02-13] MEDS: BENZTROPINE MESYLATE 1 MG TABLET PO SCH ×2 (08:44→20:10)
[2023-02-13] MEDS: FluPHENAZine HCL 10 MG TABLET PO SCH ×2 (08:44→20:10)
[2023-02-13 11:06] LABS: BASOPHILS % (AUTO) 0.6 % (0.0-2.0); EOSINOPHILS % (AUTO) 3.8 % (1.0-6.0); HEMATOCRIT 33.4 % (41-53); HEMOGLOBIN 11.3 g/dL (13.5-17.5); LYMPHOCYTES # (AUTO) 1.9 K/uL (1.0-4.8); LYMPHOCYTES % (AUTO) 28.8 % (22.0-44.0); MEAN CORPUSCULAR HEMOGLOBIN 30.4 pg (26.0-34.0); MEAN CORPUSCULAR HGB CONC 33.9 G/dL (31.0-37.0); MEAN CORPUSCULAR VOLUME 90 fL (80-100); MONOCYTES # (AUTO) 0.5 K/uL (0.1-1.0); MONOCYTES % (AUTO) 7.7 % (2.0-9.0); NEUTROPHILS # (AUTO) 3.9 K/uL (1.8-7.7); NEUTROPHILS % (AUTO) 59.1 % (40.0-70.0); PLATELET COUNT (AUTO) 384 K/uL (150-450); RED BLOOD CELL COUNT(AUTO) 3.74 MIL/uL (4.50-5.90); WHITE BLOOD COUNT (AUTO) 6.6 K/uL (4.5-11.0)
[2023-02-13 11:22] LABS: ALANINE AMINOTRANSFERASE 20 U/L (12-78); ALBUMIN 2.9 g/dL (3.4-5.0); ALKALINE PHOSPHATASE 113 U/L (46-116); ANION GAP 8 mmol/L (8-16); ASPARTATE AMINOTRANSFERASE 12 U/L (15-37); BILIRUBIN,TOTAL 0.3 mg/dL (0.1-1.0); CALCIUM, TOTAL 8.9 mg/dL (8.8-10.5); CARBON DIOXIDE 28 mmol/L (22-29); CHLORIDE 102 mmol/L (98-107); CREATININE 0.55 mg/dL (0.60-1.30); GLOMERULAR FILTR. RATE CALC > 60 mL/min (>60); GLUCOSE,RANDOM 108 mg/dL (70-110); POTASSIUM 3.8 mmol/L (3.5-5.1); SODIUM SERUM 138 mmol/L (136-145); TOTAL PROTEIN, SERUM 6.7 g/dL (6.4-8.2); UREA NITROGEN, BLOOD 17 mg/dL (7-18)
[2023-02-13 15:09] VITALS: BP 124/78; PULSE 98; RESP 20; TEMP 97.9
[2023-02-13 20:23] VITALS: BP 113/63; PULSE 103; RESP 18; TEMP 98.1
[2023-02-14 06:59] VITALS: BP 108/61; PULSE 99; RESP 18; TEMP 97.8
[2023-02-14 08:15] VITALS: BP 126/83; PULSE 88; RESP 19; TEMP 97.4
[2023-02-14] MEDS: BENZTROPINE MESYLATE 1 MG TABLET PO SCH ×2 (09:08→20:04)
[2023-02-14] MEDS: ETHYL ALCOHOL 62% ANTISEPTIC NASAL SANITIZER 0.6 ML AMPUL NASAL SCH ×2 (09:08→20:04)
[2023-02-14] MEDS: MULTIVITAMINS WITH MINERALS, THERAPEUTIC TABLET PO SCH (09:08)
[2023-02-14] MEDS: FluPHENAZine HCL 10 MG TABLET PO SCH ×2 (09:08→20:03)
[2023-02-14 19:44] VITALS: BP 126/68; PULSE 103; RESP 18; TEMP 98.2
[2023-02-15 04:14] VITALS: BP 112/74; PULSE 93; RESP 18; TEMP 98.2
[2023-02-15 08:05] VITALS: BP 110/76; PULSE 87; RESP 18; TEMP 98
[2023-02-15] MEDS: BENZTROPINE MESYLATE 1 MG TABLET PO SCH ×2 (09:13→19:51)
[2023-02-15] MEDS: ETHYL ALCOHOL 62% ANTISEPTIC NASAL SANITIZER 0.6 ML AMPUL NASAL SCH ×2 (09:13→19:51)
[2023-02-15] MEDS: FluPHENAZine HCL 10 MG TABLET PO SCH ×2 (09:13→19:52)
[2023-02-15] MEDS: MULTIVITAMINS WITH MINERALS, THERAPEUTIC TABLET PO SCH (09:13)
[2023-02-15 15:28] VITALS: BP 112/56; PULSE 103; RESP 18; TEMP 98.7
[2023-02-15] MEDS: APIXABAN 2.5 MG TABLET PO SCH (19:52)
[2023-02-15 19:59] VITALS: BP 123/66; PULSE 102; RESP 20; TEMP 97.5
[2023-02-16 05:00] VITALS: BP 96/55; PULSE 79; RESP 18; TEMP 98.2
[2023-02-16 08:35] VITALS: BP 103/52; PULSE 90; RESP 18; TEMP 98.5
[2023-02-16] MEDS: FluPHENAZine HCL 10 MG TABLET PO SCH ×2 (09:17→20:08)
[2023-02-16] MEDS: BENZTROPINE MESYLATE 1 MG TABLET PO SCH ×2 (09:17→20:08)
[2023-02-16] MEDS: MULTIVITAMINS WITH MINERALS, THERAPEUTIC TABLET PO SCH (09:17)
[2023-02-16] MEDS: APIXABAN 2.5 MG TABLET PO SCH ×2 (09:17→20:08)
[2023-02-16] MEDS: ETHYL ALCOHOL 62% ANTISEPTIC NASAL SANITIZER 0.6 ML AMPUL NASAL SCH ×2 (09:19→20:07)
[2023-02-16 19:56] VITALS: BP 110/61; PULSE 93; RESP 18; TEMP 98.4
[2023-02-17 04:45] VITALS: BP 101/58; PULSE 89; RESP 18; TEMP 98.7
[2023-02-17] MEDS: MULTIVITAMINS WITH MINERALS, THERAPEUTIC TABLET PO SCH (08:24)
[2023-02-17] MEDS: APIXABAN 2.5 MG TABLET PO SCH ×2 (08:24→20:03)
[2023-02-17] MEDS: FluPHENAZine HCL 10 MG TABLET PO SCH ×2 (08:24→20:03)
[2023-02-17] MEDS: ETHYL ALCOHOL 62% ANTISEPTIC NASAL SANITIZER 0.6 ML AMPUL NASAL SCH ×2 (08:24→20:03)
[2023-02-17] MEDS: BENZTROPINE MESYLATE 1 MG TABLET PO SCH ×2 (08:24→20:03)
[2023-02-17 16:20] VITALS: BP 105/56; PULSE 84; RESP 18; TEMP 98.2
[2023-02-17 19:40] VITALS: BP 108/64; PULSE 87; RESP 18; TEMP 98.1
[2023-02-18 07:55] VITALS: BP 139/85; PULSE 82; RESP 18; TEMP 98.4
[2023-02-18] MEDS: FluPHENAZine HCL 10 MG TABLET PO SCH ×2 (08:36→19:57)
[2023-02-18] MEDS: ETHYL ALCOHOL 62% ANTISEPTIC NASAL SANITIZER 0.6 ML AMPUL NASAL SCH ×2 (08:36→19:57)
[2023-02-18] MEDS: APIXABAN 2.5 MG TABLET PO SCH ×2 (08:36→19:57)
[2023-02-18] MEDS: BENZTROPINE MESYLATE 1 MG TABLET PO SCH ×2 (08:39→19:57)
[2023-02-18] MEDS: MULTIVITAMINS WITH MINERALS, THERAPEUTIC TABLET PO SCH (08:40)
[2023-02-18 19:53] VITALS: BP 108/57; PULSE 82; RESP 20; TEMP 97.6
[2023-02-19 04:17] VITALS: BP 97/60; PULSE 78; RESP 18; TEMP 98.5
[2023-02-19 08:10] VITALS: BP 132/83; PULSE 82; RESP 18; TEMP 97.8
[2023-02-19] MEDS: ETHYL ALCOHOL 62% ANTISEPTIC NASAL SANITIZER 0.6 ML AMPUL NASAL SCH ×2 (08:31→20:43)
[2023-02-19] MEDS: FluPHENAZine HCL 10 MG TABLET PO SCH ×2 (08:32→20:43)
[2023-02-19] MEDS: MULTIVITAMINS WITH MINERALS, THERAPEUTIC TABLET PO SCH (08:32)
[2023-02-19] MEDS: BENZTROPINE MESYLATE 1 MG TABLET PO SCH ×2 (08:32→20:43)
[2023-02-19] MEDS: APIXABAN 2.5 MG TABLET PO SCH ×2 (08:40→20:43)
[2023-02-19 15:31] VITALS: BP 128/84; PULSE 84; RESP 18; TEMP 98.4
[2023-02-19 20:22] VITALS: BP 104/70; PULSE 69; RESP 18; TEMP 98.2
[2023-02-20 04:03] VITALS: BP 99/55; PULSE 76; RESP 18; TEMP 98.4
[2023-02-20 08:03] VITALS: BP 108/68; PULSE 77; RESP 19; TEMP 98.6
[2023-02-20] MEDS: APIXABAN 2.5 MG TABLET PO SCH ×3 (08:21→21:34)
[2023-02-20] MEDS: FluPHENAZine HCL 10 MG TABLET PO SCH ×2 (08:21→21:34)
[2023-02-20] MEDS: BENZTROPINE MESYLATE 1 MG TABLET PO SCH ×2 (08:21→21:34)
[2023-02-20] MEDS: MULTIVITAMINS WITH MINERALS, THERAPEUTIC TABLET PO SCH (08:21)
[2023-02-20] MEDS: ETHYL ALCOHOL 62% ANTISEPTIC NASAL SANITIZER 0.6 ML AMPUL NASAL SCH ×2 (09:27→21:34)
[2023-02-20 20:29] VITALS: BP 108/65; PULSE 88; RESP 18; TEMP 98.3
[2023-02-20] MEDS: DOCUSATE SODIUM 100 MG CAPSULE PO PRN ×2 (21:34→21:42)
[2023-02-21] MEDS: APIXABAN 2.5 MG TABLET PO SCH ×4 (09:00→21:33)
[2023-02-21] MEDS: ETHYL ALCOHOL 62% ANTISEPTIC NASAL SANITIZER 0.6 ML AMPUL NASAL SCH ×2 (09:26→21:33)
[2023-02-21] MEDS: FluPHENAZine HCL 10 MG TABLET PO SCH ×2 (09:26→21:33)
[2023-02-21] MEDS: BENZTROPINE MESYLATE 1 MG TABLET PO SCH ×2 (09:27→21:33)
[2023-02-21] MEDS: MULTIVITAMINS WITH MINERALS, THERAPEUTIC TABLET PO SCH (09:27)
[2023-02-21] MEDS ORDERED: APIX2.5T PO (13:30)
[2023-02-21] MEDS ORDERED: ETHY1MED2 NASAL (13:31)
[2023-02-21] MEDS ORDERED: FLUP10TA28 PO (13:31)
[2023-02-21] MEDS ORDERED: MULT-1239 PO (13:32)
[2023-02-21 15:13] VITALS: BP 110/68; PULSE 86; RESP 20; TEMP 98.5
[2023-02-21 20:21] VITALS: BP 104/60; PULSE 83; RESP 18; TEMP 97.9
[2023-02-22 04:50] VITALS: BP 104/73; PULSE 81; RESP 18; TEMP 98.8
[2023-02-22] MEDS: APIXABAN 2.5 MG TABLET PO SCH ×3 (09:00→20:39)
[2023-02-22] MEDS: ETHYL ALCOHOL 62% ANTISEPTIC NASAL SANITIZER 0.6 ML AMPUL NASAL SCH ×2 (09:16→20:34)
[2023-02-22] MEDS: BENZTROPINE MESYLATE 1 MG TABLET PO SCH ×2 (09:17→20:35)
[2023-02-22] MEDS: MULTIVITAMINS WITH MINERALS, THERAPEUTIC TABLET PO SCH (09:17)
[2023-02-22] MEDS: FluPHENAZine HCL 10 MG TABLET PO SCH ×2 (09:17→20:35)
[2023-02-22 16:07] VITALS: BP 91/84; PULSE 78; RESP 18; TEMP 98.4
[2023-02-22 19:58] VITALS: BP 110/59; PULSE 93; RESP 18; TEMP 98.6
[2023-02-23 04:26] VITALS: BP 102/84; PULSE 77; RESP 18; TEMP 98.6
[2023-02-23] MEDS: ETHYL ALCOHOL 62% ANTISEPTIC NASAL SANITIZER 0.6 ML AMPUL NASAL SCH ×2 (08:12→20:39)
[2023-02-23] MEDS: DOCUSATE SODIUM 100 MG CAPSULE PO PRN (08:12)
[2023-02-23] MEDS: FluPHENAZine HCL 10 MG TABLET PO SCH ×2 (08:12→20:39)
[2023-02-23] MEDS: MULTIVITAMINS WITH MINERALS, THERAPEUTIC TABLET PO SCH (08:12)
[2023-02-23] MEDS: BENZTROPINE MESYLATE 1 MG TABLET PO SCH ×2 (08:12→20:39)
[2023-02-23 08:13] VITALS: BP 106/82; PULSE 78; RESP 18; TEMP 98.4
[2023-02-23] MEDS: APIXABAN 2.5 MG TABLET PO SCH ×3 (08:18→20:45)
[2023-02-23 20:46] VITALS: BP 97/46; PULSE 83; RESP 18; TEMP 98.6
[2023-02-24 05:50] VITALS: BP 100/70; PULSE 77; RESP 18; TEMP 98.7
[2023-02-24] MEDS: BENZTROPINE MESYLATE 1 MG TABLET PO SCH ×2 (08:50→20:31)
[2023-02-24] MEDS: FluPHENAZine HCL 10 MG TABLET PO SCH ×2 (08:50→20:31)
[2023-02-24] MEDS: ETHYL ALCOHOL 62% ANTISEPTIC NASAL SANITIZER 0.6 ML AMPUL NASAL SCH ×2 (08:51→20:31)
[2023-02-24] MEDS: MULTIVITAMINS WITH MINERALS, THERAPEUTIC TABLET PO SCH (08:54)
[2023-02-24] MEDS: APIXABAN 2.5 MG TABLET PO SCH ×2 (08:54→20:31)
[2023-02-24 11:12] VITALS: BP 125/78; PULSE 96; RESP 18; TEMP 97.5
[2023-02-24 20:17] VITALS: BP 130/50; PULSE 99; RESP 18; TEMP 98.6
[2023-02-25 05:25] VITALS: BP 120/76; PULSE 79; RESP 18; TEMP 98.2
[2023-02-25 08:07] VITALS: BP 124/72; PULSE 98; RESP 19; TEMP 97.8
[2023-02-25] MEDS: ETHYL ALCOHOL 62% ANTISEPTIC NASAL SANITIZER 0.6 ML AMPUL NASAL SCH ×2 (08:08→20:31)
[2023-02-25] MEDS: APIXABAN 2.5 MG TABLET PO SCH ×2 (08:08→20:31)
[2023-02-25] MEDS: BENZTROPINE MESYLATE 1 MG TABLET PO SCH ×2 (08:08→20:31)
[2023-02-25] MEDS: MULTIVITAMINS WITH MINERALS, THERAPEUTIC TABLET PO SCH (08:08)
[2023-02-25] MEDS: FluPHENAZine HCL 10 MG TABLET PO SCH ×2 (08:09→20:31)
[2023-02-25 19:38] VITALS: BP 111/64; PULSE 94; RESP 18; TEMP 98.3
[2023-02-26 06:01] VITALS: BP 120/87; PULSE 74; RESP 18; TEMP 97.8
[2023-02-26 08:39] VITALS: BP 133/77; PULSE 95; RESP 19; TEMP 98
[2023-02-26] MEDS: APIXABAN 2.5 MG TABLET PO SCH (08:52)
[2023-02-26] MEDS: ETHYL ALCOHOL 62% ANTISEPTIC NASAL SANITIZER 0.6 ML AMPUL NASAL SCH (08:52)
[2023-02-26] MEDS: FluPHENAZine HCL 10 MG TABLET PO SCH (08:52)
[2023-02-26] MEDS: BENZTROPINE MESYLATE 1 MG TABLET PO SCH (08:52)
[2023-02-26] MEDS: MULTIVITAMINS WITH MINERALS, THERAPEUTIC TABLET PO SCH (08:52)
[2023-02-26] MEDS: FluPHENAZine DECANOATE 25 MG/ML IM SCH (08:52)
[2023-02-26 12:11] LABS: BASOPHILS % (AUTO) 0.7 % (0.0-2.0); EOSINOPHILS % (AUTO) 2.6 % (1.0-6.0); HEMATOCRIT 36.1 % (41-53); LYMPHOCYTES # (AUTO) 1.6 K/uL (1.0-4.8); LYMPHOCYTES % (AUTO) 33.2 % (22.0-44.0); MEAN CORPUSCULAR HEMOGLOBIN 30.3 pg (26.0-34.0); MEAN CORPUSCULAR HGB CONC 33.3 G/dL (31.0-37.0); MEAN CORPUSCULAR VOLUME 91 fL (80-100); MONOCYTES # (AUTO) 0.5 K/uL (0.1-1.0); MONOCYTES % (AUTO) 10.7 % (2.0-9.0); NEUTROPHILS # (AUTO) 2.6 K/uL (1.8-7.7); NEUTROPHILS % (AUTO) 52.8 % (40.0-70.0); PLATELET COUNT (AUTO) 339 K/uL (150-450); RED BLOOD CELL COUNT(AUTO) 3.97 MIL/uL (4.50-5.90); RED CELL DISTRIBUTION WIDTH 15.2 % (11.5-14.5); WHITE BLOOD COUNT (AUTO) 4.9 K/uL (4.5-11.0)
[2023-02-26 12:22] LABS: ANION GAP 5 mmol/L (8-16); CARBON DIOXIDE 29 mmol/L (22-29); CHLORIDE 103 mmol/L (98-107); CREATININE 0.53 mg/dL (0.60-1.30); GLOMERULAR FILTR. RATE CALC > 60 mL/min (>60); GLUCOSE,RANDOM 95 mg/dL (70-110); POTASSIUM 4.5 mmol/L (3.5-5.1); SODIUM SERUM 137 mmol/L (136-145); UREA NITROGEN, BLOOD 18 mg/dL (7-18)
== END 2023-02-26 15:40 | DRG 393 ==
LOC: 6S 10:55
PROVIDERS: ADMIT Internal Medicine; ATTEND Internal Medicine
DX: K63.2 Fistula of intestine (principal); E43 Unspecified severe protein-calorie malnutrition; S42.392A Other fracture of shaft of left humerus, initial encounter for closed fracture; S32.19XA Other fracture of sacrum, initial encounter for closed fracture; Z68.1 Body mass index [BMI] 19.9 or less, adult; R64 Cachexia; F20.0 Paranoid schizophrenia; G83.14 Monoplegia of lower limb affecting left nondominant side; F29 Unspecified psychosis not due to a substance or known physiological condition; L98.8 Other specified disorders of the skin and subcutaneous tissue; S31.139A Puncture wound of abdominal wall without foreign body, unspecified quadrant without penetration into peritoneal cavity, initial encounter; W34.09XA Accidental discharge from other specified firearms, initial encounter; Y93.89 Activity, other specified; Z91.199 Patient's noncompliance with other medical treatment and regimen due to unspecified reason; Z98.890 Other specified postprocedural states; Y92.89 Other specified places as the place of occurrence of the external cause; Y99.8 Other external cause status
CPT/HCPCS: 80048; 80053; 85025; 87081; 93970; 97110; 97112; 97116; 97163; 97167; 97530; 97535; J0515; J1630; J2680; J3490; J7030